=== PATIENT | male | born 1980 | race Caucasian/White ===

== ENCOUNTER 2025-03-05 09:23 | Day surgery (SDC) | payer OTHER ==
[~2025-03-05 09:23] MED LIST: propofoL 500 MG/50 ML 50 ML ONE
[2025-03-05] MEDS: Lactated Ringers 1,000 ML IV SCH (10:43)
== END 2025-03-05 12:20 | disposition home or self-care (01) ==
LOC: MW.SDS 09:23
PROVIDERS: ATTEND Surgery
DX: Z12.11 Encounter for screening for malignant neoplasm of colon (principal); K64.9 Unspecified hemorrhoids; Z87.891 Personal history of nicotine dependence
CPT/HCPCS: 45378; J2704; J7120; 00812